=== PATIENT | female | born 1950 | race Caucasian/White ===

== ENCOUNTER → 2018-07-11 | Outpatient (CLI) | payer MEDICARE, OTHER ==
[~2018-07-11] MED LIST: ASPI-1441 PO; ASPI81TA94 PO; CALC600T71 PO; CEPH-13 PO; CEPH250C37 PO; ESTR-35 PO; HYDR-385 PO; IBU600 PO; LEVO50TA86 PO; LORA-1455 PO; MULT-1335 PO; MULT1CAP41 PO; OMEG500C7 PO; PER PO; THYROX PO; TRA50 PO; VIT-7 PO; [UNRECOGNIZED DRUG - CODE] PO
--- NOTE | 2018-07-11 14:11 | RADIOLOGY IMAGING REPORT ---
FACILITY: [facility] PATIENT NAME: KRZYSZTOF SWARTZ : [id number] MR: [id number] V: [id number] EXAM DATE: ORDERING PHYSICIAN: DAYNA TAYLOR TECHNOLOGIST: Opal Zuluaga PROCEDURE:BILATERAL DIGITAL SCREENING MAMMOGRAM WITH CAD ASSISTED INTERPRETATION & 3D TOMOSYNTHESIS COMPARISON:Prior mammograms 06/29/17, 06/09/16, 04/28/15, 12/18/12. INDICATIONS:SCREENING IMPLANTS FINDINGS: Again noted are bilateral subpectoral breast implants. A small to moderate amount of fibroglandular tissue is seen anterior to the implant. There is a lobular contour to the upper portion of both implants on the MLO views that appear similar to the prior studies. There is no evidence of malignant appearing mass, malignant appearing calcifications or other secondary sign of malignancy in either breast. DIAGNOSTIC CATEGORY 2--BENIGN FINDING. RECOMMENDATIONS: ROUTINE MAMMOGRAM AND CLINICAL EVALUATION. IMPRESSION: BIRADS 2: Benign finding. No significant abnormality is seen. Dictated by: Jennifer Onofre M.D. on 07/11/2018 at 9:51 Transcribed by: GARETH on 07/11/2018 at 10:02 Approved by: Jennifer Onofre M.D. on 07/11/2018 at 14:10 [facility]
== END ==
LOC: MAMO 02:23
PROVIDERS: ATTEND Physician Assistant
DX: Z12.31 Encounter for screening mammogram for malignant neoplasm of breast (principal)
CPT/HCPCS: 77063; 77067

== ENCOUNTER 2018-09-05 03:37 | Day surgery (SDC) | payer MEDICARE, OTHER ==
[2018-09-05] VITALS (8 sets, daily range): BP systolic 88–122; BP diastolic 62–83
[~2018-09-05] VITALS: Ht 172.7 cm; Wt 55.8 kg
[~2018-09-05 03:37] MED LIST changes: +CALC600T63 PO
[2018-09-05] MEDS ORDERED: NORMOSOL R SOLN(*) 1000 ML BAG 1,000 ML IV PRN (08:20)
[2018-09-05] MEDS ORDERED: LIDOCAINE/SOD BICARB 8.4% SYR ID ONE (08:20)
[2018-09-05] MEDS ORDERED: PROPOFOL EMUL(*) 10MG/ML 20 ML 40 ML ONE (08:36)
[2018-09-05] MEDS ORDERED: LIDOCAINE MPF 1% 5 ML VIAL ONE (08:36)
--- NOTE | 2018-09-05 09:01 | Short(Outpt) Discharge Summary ---
Discharge Summary Reason for Hosp/Final Diag: (1) Colon cancer screening Status: Chronic Hospital Course & Plan: Colonoscopy with polypectomy x1 completed without problems. Departure Discharge to: Home, Self Care Discharge Instructions Home Meds Reported Medications Calcium Carbonate (CALCIUM) 600 Mg Tablet, 1200 MG PO DAILY 07/24/18 Aspirin (ASPIRIN) 81 Mg Tab.chew, 81 MG PO QDAY, TAB.CHEW 06/15/16 Levothyroxine Sodium (LEVOTHYROXINE SODIUM) 50 Mcg Tablet, 50 MCG PO QDAY, TAB 06/15/16 Estradiol (ESTRACE) 1 Mg Tablet, 1 MG PO QDAY 06/15/16 Vit A,C & E/Lutein/Minerals (OCUVITE TABLET) 1 Each Tablet, 1 EACH PO DAILY 05/20/15 Multivitamins W-Minerals (Multiple Vitamin) 1 Tab Tablet, 1 TAB PO DAILY, 0 Refills 10/18/10 Diet: Regular Activity: As Tolerated Special Instructions: Your colonoscopy was completed without problems and your prep was excellent (Good Job!!). I removed a single polyp from your sigmoid colon and it was sent to pathology. My office will call you in the next week or two to let you know what the polyp is and when your next colonoscopy should be (either 5 or 10 years) depending on pathology results. Copies to: JESUS ALBERTO FUENTES MD ; MITCHELL MURPHY MD Sep 05, 2018 09:01
== END 2018-09-05 10:00 | disposition home or self-care (01) ==
LOC: OR 03:37
PROVIDERS: ATTEND Surgery
DX: Z12.11 Encounter for screening for malignant neoplasm of colon (principal); K63.5 Polyp of colon
CPT/HCPCS: 00811; 45385; 88305; J2001; J2704

== ENCOUNTER 2019-01-08 16:58 | Emergency (ER) | payer MEDICARE, OTHER ==
--- NOTE | 2019-01-08 17:14 | ER Report ---
History and Physical Time Seen By MD: 17:14 Hx. of Stated Complaint: deep cough past few days, hx pneumonia, chills, plugged ears HPI/ROS CHIEF COMPLAINT: Cough HISTORY OF PRESENT ILLNESS:68 year old female presents to ED with cough for two days. Patient reports that 4 days ago she had burning in her throat that felt like reflux, which caused a sore throat. Her cough then started two days later with mucus running down the back of her throat. Patient reports coughing up white mucus every now and then. Reports SOB. Denies chest pain, pressure, and palpitations. Reports chills but denies fevers. Reports to taking ibuprofen and mucinex to help with her symptoms. REVIEW OF SYSTEMS: Constitutional: Denies fevers, body aches. Reports chills, diaphoresis. HEENT: Denies current sore throat. Reports feelings of ear fullness. Denies ear pain, nasal congestion, sinus pain, headache. Respiratory: Reports productive cough, SOB Cardiovascular: No chest pain, no palpitations. Gastrointestinal: No vomiting, no nausea, no abdominal pain. Musculoskeletal: No back pain. Allergies: Coded Allergies: Sulfa (Sulfonamide Antibiotics) (Verified Allergy, Intermediate, RASH, 12/09/16) Home Meds Active Scripts Promethazine HCl/Codeine (Prometh-Codein 6.25-10 mg/5 ml) 5 Ml Syrup, 1 TSP PO Q6H PRN for COUGH, #120 ML Prov:EDEN WILDER 01/08/19 Prednisone (PREDNISONE) 20 Mg Tablet, 20 MG PO BID, #10 TAB Prov:EDEN WILDER 01/08/19 Azithromycin 250 Mg Tab (AZITHROMYCIN 250 MG TAB) 250 Mg Tablet, 1 TAB PO QDAY, #6 TAB Take 2 tabs today and then 1 tab a day until gone. Prov:EDEN WILDER 01/08/19 Levothyroxine Sodium (LEVOTHYROXINE SODIUM) 50 Mcg Tablet, 50 MCG PO QDAY, #90 TAB 3 Refills Prov:JESUS ALBERTO FUENTES MD 09/12/18 Estradiol (ESTRACE) 1 Mg Tablet, 1 MG PO QDAY, #90 TAB 3 Refills Prov:JESUS ALBERTO FUENTES MD 09/12/18 Reported Medications Calcium Carbonate (CALCIUM) 600 Mg Tablet, 1200 MG PO DAILY 07/24/18 Vit A,C & E/Lutein/Minerals (OCUVITE TABLET) 1 Each Tablet, 1 EACH PO DAILY 05/20/15 Multivitamins W-Minerals (Multiple Vitamin) 1 Tab Tablet, 1 TAB PO DAILY, 0 Refills 10/18/10 Past Medical/Surgical History Past medical history significant for bronchitis, pneumonia in 1997, dysphagia with throat pain- now resolved, right wrist fracture, hypothyroidism. Past surgical history significant for tubal ligation, hysterectomy, colonoscopy in 2007, right wrist surgery, screw placed in right index finger in 2015. Reviewed Nurses Notes: Yes Hx Smoking: No Smoking Status: Never Smoker Exposure to Second Hand Smoke?: No Hx Substance Use Disorder: No Hx Alcohol Use: No Constitutional Vital Sign - Last 24 Hours 01/08/19 01/08/19 01/08/19 01/08/19 16:58 17:03 17:04 17:10 Temp 98.4 Pulse ??? 75 Resp 18 B/P (MAP) 142/77 142/77 (98) 141/85 (103) Pulse Ox 91 O2 Delivery Room Air 01/08/19 01/08/19 01/08/19 01/08/19 17:13 17:28 17:30 17:40 Pulse 70 74 B/P (MAP) 144/82 (102) Pulse Ox 91 92 93 O2 Delivery Room Air 01/08/19 01/08/19 01/08/19 01/08/19 17:40 17:43 17:58 18:00 Pulse 75 70 ??? Resp 18 B/P (MAP) 134/98 (110) Pulse Ox 99 01/08/19 01/08/19 01/08/19 01/08/19 18:13 18:28 18:30 18:43 Pulse 77 78 84 B/P (MAP) 128/83 (98) Pulse Ox 90 91 93 01/08/19 01/08/19 01/08/19 01/08/19 18:48 19:00 19:00 19:00 Pulse 88 84 Resp 18 B/P (MAP) 125/76 (92) Pulse Ox 90 92 O2 Delivery Room Air 01/08/19 01/08/19 19:09 19:18 Pulse 72 85 Resp 18 Pulse Ox 94 Physical Exam General Appearance: The patient is alert, has no immediate need for airway protection and no current signs of toxicity. Eyes: Pupils equal and round no injection. HENT: TMs pearly soliman with no erythema, bulging or retractions. Respiratory: Chest is non tender, right upper lobe with crackles, rest of lung wing are clear to auscultation. Cardiac: regular rate and rhythm Gastrointestinal: Abdomen is soft and non tender, no masses, bowel sounds normal. Musculoskeletal: Neck: Neck is supple and non tender. Extremities have full range of motion and are non tender. Skin: No rashes or lesions. DIFFERENTIAL DIAGNOSIS: After history and physical exam differential diagnosis was considered for influenza, pneumonia, WI, eustachian tube dysfunction, bronchitis, viral syndrome, congestive heart failure. Medical Decision Making Data Points Result Diagram: 01/08/19 1747 01/08/19 1730 Laboratory Hematology Test 01/08/19 17:30 01/08/19 17:47 Sodium Level 139 mmol/L (137-145) Potassium Level 3.9 mmol/L (3.5-5.0) Chloride Level 109 mmol/L (98-107) Carbon Dioxide Level 22 mmol/L (22-31) Blood Urea Nitrogen 30 mg/dl (7-18) Creatinine 0.70 mg/dl (0.52-1.04) Glomerular Filtration Rate Calc > 60.0 Random Glucose 103 mg/dl (75-110) Calcium Level 9.0 mg/dl (8.4-10.2) Total Bilirubin 0.2 mg/dl (0.2-1.3) Aspartate Amino Transf (AST/SGOT) 33 U/L (0-35) Alanine Aminotransferase (ALT/SGPT) 31 U/L (0-56) Alkaline Phosphatase 86 U/L (0-126) Troponin I < 0.012 ng/ml Total Protein 6.3 g/dl (6.3-8.2) Albumin 4.0 g/dl (3.5-5.0) Influenza Virus Type A (PCR) Negative (NEGATIVE) Influenza Virus Type B (PCR) Negative (NEGATIVE) Red Blood Count 4.36 M/uL (4.17-5.56) Mean Corpuscular Volume 93.7 fL (80.0-96.0) Mean Corpuscular Hemoglobin 32.0 pg (26.0-33.0) Mean Corpuscular Hemoglobin Concent 34.1 g/dL (32.0-36.0) Red Cell Distribution Width 13.6 % (11.5-14.5) Mean Platelet Volume 7.7 fL (7.2-11.1) Neutrophils (%) (Auto) 44.3 % (39.4-72.5) Lymphocytes (%) (Auto) 35.8 % (17.6-49.6) Monocytes (%) (Auto) 15.2 % (4.1-12.4) Eosinophils (%) (Auto) 2.3 % (0.4-6.7) Basophils (%) (Auto) 2.4 % (0.3-1.4) Nucleated RBC Relative Count (auto) 0.1 /100WBC Neutrophils # (Auto) 1.5 K/uL (2.0-7.4) Lymphocytes # (Auto) 1.2 K/uL (1.3-3.6) Monocytes # (Auto) 0.5 K/uL (0.3-1.0) Eosinophils # (Auto) 0.1 K/uL (0.0-0.5) Basophils # (Auto) 0.1 K/uL (0.0-0.1) Nucleated RBC Absolute Count (auto) 0.00 K/uL B-Type Natriuretic Peptide 11 pg/ml (0-100) Chemistry Test 01/08/19 17:30 01/08/19 17:47 Glomerular Filtration Rate Calc > 60.0 Calcium Level 9.0 mg/dl (8.4-10.2) Total Bilirubin 0.2 mg/dl (0.2-1.3) Aspartate Amino Transf (AST/SGOT) 33 U/L (0-35) Alanine Aminotransferase (ALT/SGPT) 31 U/L (0-56) Alkaline Phosphatase 86 U/L (0-126) Troponin I < 0.012 ng/ml Total Protein 6.3 g/dl (6.3-8.2) Albumin 4.0 g/dl (3.5-5.0) Influenza Virus Type A (PCR) Negative (NEGATIVE) Influenza Virus Type B (PCR) Negative (NEGATIVE) White Blood Count 3.3 k/uL (4.5-11.0) Red Blood Count 4.36 M/uL (4.17-5.56) Hemoglobin 13.9 g/dL (12.0-16.0) Hematocrit 40.8 % (34.0-47.0) Mean Corpuscular Volume 93.7 fL (80.0-96.0) Mean Corpuscular Hemoglobin 32.0 pg (26.0-33.0) Mean Corpuscular Hemoglobin Concent 34.1 g/dL (32.0-36.0) Red Cell Distribution Width 13.6 % (11.5-14.5) Platelet Count 188 K/uL (150-450) Mean Platelet Volume 7.7 fL (7.2-11.1) Neutrophils (%) (Auto) 44.3 % (39.4-72.5) Lymphocytes (%) (Auto) 35.8 % (17.6-49.6) Monocytes (%) (Auto) 15.2 % (4.1-12.4) Eosinophils (%) (Auto) 2.3 % (0.4-6.7) Basophils (%) (Auto) 2.4 % (0.3-1.4) Nucleated RBC Relative Count (auto) 0.1 /100WBC Neutrophils # (Auto) 1.5 K/uL (2.0-7.4) Lymphocytes # (Auto) 1.2 K/uL (1.3-3.6) Monocytes # (Auto) 0.5 K/uL (0.3-1.0) Eosinophils # (Auto) 0.1 K/uL (0.0-0.5) Basophils # (Auto) 0.1 K/uL (0.0-0.1) Nucleated RBC Absolute Count (auto) 0.00 K/uL B-Type Natriuretic Peptide 11 pg/ml (0-100) EKG/Imaging EKG Interpretation 12 lead EKG: Rhythm: normal sinus rhythm [place]: normal QRS: normal ST segments: normal Monitor Interpretation: Normal Sinus Rhythm Imaging Chest x-ray: FINDINGS: Lungs are clear and are well aerated bilaterally. No effusion or pneumothorax is seen. Heart size and mediastinal contours are normal. Breast implants are in place bilaterally. These were seen on a prior CT scan. IMPRESSION: 1. No radiographic evidence of active disease. ED Course/Re-evaluation ED Course Patient admitted to an exam room, history and physical obtained, and differentials considered. Patient with cough that started two days ago. Cough is productive. Associated symptoms include SOB, ear fullness, chills, diaphoresis. Patient denies vomiting, nausea, chest pain, nasal congestion. Patient has been taking mucinex and ibuprofen. Upon exam right upper lobe with crackles. Heart regular rate and rhythm. TMs with no erythema. CBC, CMP, troponin, BNP, EKG, chest x-ray, influenza gathered. Nebulizer treatment ordered. IV started, 500L NS infused. Chest x-ray with no radiographic evidence of active disease. WBC 3.3. Monocytes 15.2. Flu was negative. Patient likely has a viral bronchitis. Patient reported that albuterol nebulizer helped relieve her shortness of breath. Another neb was ordered prior to discharge. Will send home with albuterol inhaler and spacer. Will prescribe 5 day course of prednisone. Will also cover with prophylactic course of azithromycin due to immune suppression with the prednisone. Will prescribe promethazine codeine cough syrup as needed for cough. Patient states understanding with plan of care and has no further qu estions. Decision to Disposition Date: Jan 08, 2019 Decision to Disposition Time: 19:11 Depart Departure Latest Vital Signs Vital Signs Date Time Temp Pulse Resp B/P (MAP) Pulse Ox O2 Delivery O2 Flow Rate FiO2 01/08/19 19:18 85 94 01/08/19 19:09 18 01/08/19 19:00 125/76 (92) 01/08/19 19:00 Room Air 01/08/19 17:03 98.4 Impression: Primary Impression: Viral bronchitis Condition: Improved Disposition: HOME OR SELF-CARE Referrals: JESUS ALBERTO FUENTES MD (PCP) New Scripts Promethazine HCl/Codeine (Prometh-Codein 6.25-10 mg/5 ml) 5 Ml Syrup 1 TSP PO Q6H PRN for COUGH, #120 ML Prov: EDEN WILDER 01/08/19 Prednisone (PREDNISONE) 20 Mg Tablet 20 MG PO BID, #10 TAB Prov: EDEN WILDER 01/08/19 Azithromycin 250 Mg Tab (AZITHROMYCIN 250 MG TAB) 250 Mg Tablet 1 TAB PO QDAY, #6 TAB Take 2 tabs today and then 1 tab a day until gone. Prov: EDEN WILDER 01/08/19 Patient Instructions: Acute Bronchitis (ED) Additional Instructions: Please take two tabs azithromycin today, then 1 tab until it is gone. Please take prednisone twice a day for 5 days. Please use your inhaler every 2-4 hours as needed for shortness of breath or difficulty breathing. You may take the codeine cough syrup every hours as needed for cough. Please follow-up with your primary care provider in 2-3 days. Please return to the ED if you have any difficulty breathing, your cough worsens, or you develop fever or vomiting. EDEN WILDER Jan 08, 2019 17:14
[2019-01-08] MEDS ORDERED: NS(*) 0.9% 500 ML BAG 500 ML IV ONE (17:27)
[2019-01-08] MEDS ORDERED: ALBUTEROL/IPRATROPIUM 3 ML NEB NEB ONE ×2 (17:30→19:00)
[2019-01-08 17:53] LABS: PLATELET COUNT, AUTOMATED 188 K/uL (150-450)
[2019-01-08 19:00] VITALS: BP 125/76
--- NOTE | 2019-01-08 19:01 | RADIOLOGY IMAGING REPORT ---
FACILITY: [facility] - [place] PATIENT NAME: Lissy Soni : 1950 MR: [id number] V: [id number] EXAM DATE: ORDERING PHYSICIAN: EDEN WILDER TECHNOLOGIST: Location: [facility] Patient: Lissy Soni : 1950 Visit/Account:[id number] Date of Sevice: 01/08/2019 2 VIEWS CHEST INDICATION: Respiratory distress. COMPARISON: December 08, 2016 FINDINGS: Lungs are clear and are well aerated bilaterally. No effusion or pneumothorax is seen. Heart size and mediastinal contours are normal. Breast implants are in place bilaterally. These were seen on a prio r CT scan. IMPRESSION: 1. No radiographic evidence of active disease. Report Dictated By: Tunde Engel at 01/08/2019 6:56 PM Report E-Signed By: Tunde Engel at 01/08/2019 6:58 PM WSN:[id number]
[2019-01-08] MEDS ORDERED: ALBUTEROL 8 GM INHALER INH ONE (19:15)
[2019-01-08] MEDS ORDERED: AZIT-18 PO (19:22)
[2019-01-08] MEDS ORDERED: PRED20TA6 PO (19:22)
[2019-01-08] MEDS ORDERED: PROM5SYR PO (19:22)
--- NOTE | 2019-01-08 23:19 | EKG ---
[place]AC[place] [facility] [place]IENT NAME: KRZYSZTOF SWARTZ : [id number] MR: [id number] V: [id number] EXAM DATE: ORDERING PHYSICIAN: EDEN WILDER TECHNOLOGIST: ANDREW Magallanes Reason : COUGH Blood Pressure : / mmHG Vent. Rate : 069 BPM Atrial Rate : 069 BPM P-R Int : 140 ms QRS Dur : 082 ms QT Int : 400 ms P-R-T Axes : 070 030 062 degrees QTc Int : 428 ms Normal sinus rhythm with sinus arrhythmia Normal ECG When compared with ECG of 08-DEC-2016 14:41, Unchanged from previous Confirmed by ALLYN WILCOX ([id number]) on 01/09/2019 7:34:15 AM Referred By: MEÑO Confirmed By:ALLYN WILCOX
== END 2019-01-08 19:36 | disposition home or self-care (01) ==
LOC: ER 17:19
DX: J20.8 Acute bronchitis due to other specified organisms (principal)
CPT/HCPCS: 36415; 71046; 83880; 84484; 85025; 87502; 93005; 94640; 99284; J7040; J7620; 82040; 82247; 82310; 82374; 82435; 82565; 82947; 84075; 84132; 84155; 84295; 84450; 84460; 84520